=== PATIENT | female | born 1965 | race Caucasian/White ===

== ENCOUNTER → 2016-09-14 | Outpatient (CLI) | payer BC ==
[~2016-09-14] MED LIST: GADOBUTROL 10 ML VIAL IVP ONE
== END ==
LOC: FIMAGING 07:08
PROVIDERS: ATTEND Psychiatry & Neurology Neurology
DX: M50.321 Other cervical disc degeneration at C4-C5 level (principal); M48.02 Spinal stenosis, cervical region
CPT/HCPCS: A9585

== ENCOUNTER → 2017-02-18 | Outpatient (CLI) | payer BC | LOC: FIMAGING 16:49 | PROVIDERS: ATTEND Family Medicine | DX: R10.13 Epigastric pain (principal) ==

== ENCOUNTER → 2018-02-14 | Outpatient (CLI) | payer BC ==
[~2018-02-14] MED LIST changes: -GADOBUTROL 10 ML VIAL IVP ONE; +IOPAMIDOL (ISOVUE-300) 150 ML BTL ONE
== END ==
LOC: FIMAGING 08:24
PROVIDERS: ATTEND Urology
DX: N20.0 Calculus of kidney (principal); K59.00 Constipation, unspecified
CPT/HCPCS: Q9967

== ENCOUNTER → 2018-02-20 | Outpatient (CLI) | payer BC | LOC: BMCIMAGING 15:14 | PROVIDERS: ATTEND Family Medicine | DX: Z12.31 Encounter for screening mammogram for malignant neoplasm of breast (principal) ==

== ENCOUNTER 2018-08-07 08:33 | Day surgery (SDC) | payer BC ==
[2018-08-07] MEDS ORDERED: levOFLOXACIN 500 MG/DEXTROSE 100 ML IV ONE (09:03)
[2018-08-07] MEDS ORDERED: LR 1,000 ML IV ONE (09:04)
[2018-08-07] MEDS ORDERED: BOTULINUM TOXIN TYPE A 100 UNIT VIAL MISC ONE (09:48)
--- NOTE | 2018-08-07 10:04 | PDANEPAE ---
ANE History of Present Illness cysto with botox ANE Past Medical History - Cardiovascular History Hx Hypertension: No Hx Arrhythmias: No Hx Chest Pain: No Hx Coronary Artery / Peripheral Vascular Disease: No Hx CHF / Valvular Disease: No Hx Palpitations: No Cardiovascular History Comment: runs low bp - Pulmonary History Hx COPD: No Hx Asthma/Reactive Airway Disease: No Hx Recent Upper Respiratory Infection: No Hx Oxygen in Use at Home: No Hx Sleep Apnea: No Sleep Apnea Screening Result - Last Documented: Negative - Neurologic History Hx Cerebrovascular Accident: No Hx Seizures: No Hx Dementia: No - Endocrine History Hx Diabetes: No Hypothyroid: No Hyperthyroid: No Obesity: no - Renal History Hx Renal Disorders: No Renal History Comment: kidney stones - Liver History Hx Hepatic Disorders: No - Neurological & Psychiatric Hx Hx Neurological and Psychiatric Disorders: No - Cancer History Hx Cancer: No Cancer History Comment: basal cell ca removed - Congenital Disorder History Hx Congenital Disorders: No - GI History GERD: no Hx Gastrointestinal Disorders: No - Other Health History Other Health History: neg - Chronic Pain History Chronic Pain: No - Surgical History Prior Surgeries: hysterectomy. kidney stone removal. shoulder r repair. c section x2. knee r. wisdom teeth. jaw x3. colonoscopies x2 ANE Review of Systems Review of Systems: - Exercise capacity Exercise capacity: >=4 METS METS (RN): 5 METS ANE Patient History - Allergies Allergies/Adverse Reactions: Penicillins Allergy (Verified 07/28/18 12:14) Hives - Home Medications Home Medications: Herbals/Supplements -Info Only 07/28/18 [Last Taken 08/06/18] Myrbetriq 07/28/18 [Last Taken 07/28/18] - NPO status NPO Since - Liquids (Date): 08/07/18 NPO Since - Liquids (Time): 07:30 NPO Since - Solids (Date): 08/06/18 NPO Since - Solids (Time): 20:30 - Anes Hx Anes Hx: post operative nausea and vomiting - Smoking Hx Smoking Status: Never smoked ANE Labs/Vital Signs - Vital Signs Blood Pressure: 96/48 Heart Rate: 69 Respiratory Rate: 16 O2 Sat (%): 97 Height: 163.83 cm Weight: 59.421 kg ANE Physical Exam - Airway Mallampati Score: Class 2 Mouth exam: normal dental/mouth exam - Pulmonary Pulmonary: no respiratory distress - Cardiovascular Cardiovascular: regular rate and rhythym - ASA Status ASA Status: I ANE Anesthesia Plan Anesthesia Plan: MAC
--- NOTE | 2018-08-07 10:08 | PDHPUP ---
History & Physical Update H&P update statement: This history and physical update is based on an assessment of the patient which was completed after admission or registration (within 24 hours), but prior to the surgery/procedure. H&P update: H&P reviewed & patient examined, no change in patient's condition since H&P completed
[2018-08-07] MEDS ORDERED: PROPOFOL 200 MG/20 ML VIAL ONE (10:24)
[2018-08-07] MEDS ORDERED: LIDOCAINE 2% 5 ML SDV ONE (10:24)
[2018-08-07] MEDS ORDERED: NALOXONE HCL 0.4 MG/ML INJ IVP PRN (10:57)
[2018-08-07] MEDS ORDERED: ONDANSETRON 4 MG/2 ML VIAL IVP PRN (10:57)
[2018-08-07] MEDS ORDERED: fentaNYL 100 MCG/2 ML INJ IVP PRN (10:57)
[2018-08-07] MEDS ORDERED: LR 500 ML IV PRN (10:57)
[2018-08-07] MEDS ORDERED: ALBUTEROL 3 ML DEYVIAL IH PRN (10:57)
[2018-08-07] MEDS ORDERED: HYDROCODONE/APAP 5/325 TAB PO PRN (10:57)
[2018-08-07] MEDS ORDERED: LIDOCAINE 2% JELLY 20 ML (UROJECT) ONE (11:07)
--- NOTE | 2018-08-07 11:20 | POSTANESTH ---
Post Anesthetic Evaluation Cardiovascular Status: Normal, Stable Respiratory Status: Normal, Stable Level of Consciousness/Mental Status: Can Participate in Eval Pain Control: Adequate, Prn Tx Ordered Nausea/Vomiting Control: Adequate, Prn Tx Ordered Complications Possibly Related to Anesthesia: None Noted
--- NOTE | 2018-08-07 11:26 | POSTOPPROG ---
Post Op Note Date of Operation: 08/07/18 Surgeon: Sonal Cho Anesthesiologist: Héctor Anesthesia: IV Sedation Pre-op Diagnosis: urinary urgency and urinary frequency Post-op Diagnosis: same Indication: urinary urgency and urinary frequency Procedure: cystoscopy, intravesical injection of botox 100U Findings: normal bladder Inf/Abcess present in the surg proc area at time of surgery?: No EBL: Minimal Complications: None, patient tolerated procedure well Specimen(s): none
[2018-08-07 12:02] VITALS: BP 94/47
--- NOTE | 2018-08-07 14:06 | GOP ---
[f rep st] OPERATIVE REPORT DATE OF OPERATION: 08/07/2018 SURGEON: Sonal Cho MD ANESTHESIA: IV sedation. ANESTHESIOLOGIST: Dr. Anaya. PREOPERATIVE DIAGNOSIS: Urinary urgency and urinary frequency. POSTOPERATIVE DIAGNOSIS: Urinary urgency and urinary frequency. PROCEDURE PERFORMED: Cystoscopy and intravesical injection of Botox 100 units. FINDINGS: Normal bladder. Mucosa was hemostatic after injection of the Botox. ESTIMATED BLOOD LOSS: Minimal. INDICATIONS: Urinary urgency and frequency. The patient has been on Myrbetriq in the past and desired further options and treatment that might be more efficacious for her than Myrbetriq, so I recommended Botox and she presents today for Botox injections. We did discuss the potential need for intermittent catheterization, which may not be realized until 1-2 weeks after the initial Botox injection. She understood this and agrees to do CIC if needed. Other risks were discussed including bleeding and infection, and she understood these and agreed to proceed. DESCRIPTION OF PROCEDURE: The patient was taken back to the operating room, placed on the operating room table in the supine position. General anesthesia induced without complication. Time-out performed. Core measures satisfied, including placement of a Zia Hugger, SCDs and administration of Levaquin antibiotic, due to a penicillin allergy. The Botox had was reconstituted by ne. I injected 10 mL of injectable saline into the Botox vial and then had reconstituted the Botox 100 units into 10 mL of injectable normal saline.She was brought to the end of the table, placed in a dorsal lithotomy position. All pressure points padded. Genitalia draped and prepped in a standard surgical fashion with Betadine. Rigid cystoscope easily cannulated her urethral meatus and was advanced atraumatically into the bladder. I did do a thorough moreno cystoscopy before starting the Botox injection. Her bladder was completely normal with no cellules, lesions, trabeculations or abnormalities and the right and left ureteral orifices were in their expected anatomical position. The Laborie needle from was advanced through the cystoscope and in a grid-like pattern, I injected a half a mL of reconstituted Botox into the bladder alternating mucosal and then deeper detrusor injections. This was done in a grid-like pattern. There were 20 injections. I then injected 1 ml of injectable saline to release the botox that was in the needle canula. I did not inject in the trigone, but I did inject sites of the remaining bladder. The injection sites were hemostatic at the end. So at this point, all the Botox had been injected. She did well during the procedure and the bladder was emptied. The scope was removed and lidocaine jelly placed per urethra. She was awoken from anesthesia and transferred to PACU in good condition. COMPLICATIONS: None. The patient tolerated the procedure well. /[id number]/MODL MTDD
== END 2018-08-07 12:00 | disposition home or self-care (01) ==
LOC: FSGY 08:33
PROVIDERS: ATTEND Urology
PROC: 3E0K8GC Introduction of Other Therapeutic Substance into Genitourinary Tract, Via Natural or Artificial Opening Endoscopic (ICD-10-PCS; principal; 2018-08-07 09:45)
PROC: 0TJB8ZZ Inspection of Bladder, Via Natural or Artificial Opening Endoscopic (ICD-10-PCS; principal; 2018-08-07 09:45)
DX: N39.41 Urge incontinence (principal); R35.0 Frequency of micturition; M79.7 Fibromyalgia
CPT/HCPCS: J0585; J1956; J2704